=== PATIENT | female | born 1965 | race Two or more races ===

== ENCOUNTER 2024-03-10 10:00 | Outpatient (RCR) | payer MEDICAID, SELFPAY ==
--- NOTE | 2024-02-18 09:08 | PTNOTE_ITS ---
PT OP Initial Eval Patient Information Outpatient Physical Therapy Treatment Date: 02/18/24 Visit Reasons: RIGHT ELBOW PAIN Medical Diagnosis: M77.11 Treatment Dx #1: R elbow pain Treatment Dx #2: R facing end trimmer weakness Start of Care: 02/18/24 Date of Onset: 2 months ago Smoking Status Smoking Status: Never smoker Initial Assessment Subjective: Pt is 58 yr old austrian speaking female who reports onset of R elbow pain x2 months. Increased pain with lifting the UE to reach a tall cabinet or with brushing teeth. The hand feels weaker with gripping and opening jars. PMH: HTN, thyroidectomy Imaging: Xrays with provider Pt goal: to get rid of the pain Objective: Cruz facing end trimmer strength: R: 20 lbs, L: 45 lbs Wrist AROM:? Strength: ? Flexion: full? 4/5 with elbow pain ? Extension: full ? 4/5 with pain ? Special testing: ? Ashley test: positive ? Cozen's: positive ? TTP: moderate common extensor tendon at lateral elbow Assessment: Pt presentation consistent with referring Dx of R lateral epicondylitis. Pt ? has pain with resisted wrist extension, extensor tendon is TTP and pt has ? decreased facing end trimmer strength on R. Pt has positive testing for lateral ? epicondylitis. Eval followed by HEP with materials. Short Term and [employer] Goals 1. Ind with HEP ? 2. Improved facing end trimmer strength on R to 45 lbs ? 3. Pt will open jars with <=1/10 pain in R elbow ? 4. Improved wrist strength to 4+/5 without pain ? 5. Decreased TTP from mod to min of R lateral elbow Treatment Plan ? 1. Manual therapy ? 2. Therex ? 3. Modalities as indicated, moist heat, ice, estim Frequency and Duration: 1-2x a week for 12 visits, will need more auth to continue past 4 Certification Dates: 02/18/24 to 05/16/24 Procedure Charges OP PT Eval Mod Complex 30 minutes: Yes
--- NOTE | 2024-02-20 17:48 | PT.ODAYNRPT ---
PT Outpatient Daily Note OP Daily Note Outpatient Physical Therapy Treatment Date: 02/20/24 Visit Reasons: RIGHT ELBOW PAIN Subjective: Doing HEP with variable pain level Objective: See F/S for therex MT: STM R lateral epicondyle with Graston x7' Assessment: Moderate TTP of wrist extensors with MT Plan: Continue per POC Length of Time (minutes) of Treatment: 30 Minutes Procedure Charges Therapeutic Exercise 30 minutes: Yes
--- NOTE | 2024-02-24 15:04 | PT.ODAYNRPT ---
PT Outpatient Daily Note OP Daily Note Outpatient Physical Therapy Treatment Date: 02/24/24 Visit Reasons: RIGHT ELBOW PAIN Subjective: Pt reports she is still having pain on R elbow. Objective: Please see flow sheet for ther ex list. Assessment: Pt has poor activity tolerance due to increase in pain with activitiy. Plan: Continue with POC. Length of Time (minutes) of Treatment: 30 Minutes Procedure Charges Therapeutic Exercise 30 minutes: Yes
--- NOTE | 2024-03-02 14:40 | PT.ODAYNRPT ---
PT Outpatient Daily Note OP Daily Note Outpatient Physical Therapy Treatment Date: 03/02/24 Visit Reasons: RIGHT ELBOW PAIN Subjective: Pt reports no changes with elbow symptoms, continues to have pain. Objective: Please see flow sheet for ther ex list. Assessment: Delay with intervention progression due to pt pain response. Plan: Continue with POC. Length of Time (minutes) of Treatment: 30 Minutes Procedure Charges Therapeutic Exercise 30 minutes: Yes
--- NOTE | 2024-03-10 10:45 | PT.ODAYNRPT ---
PT Outpatient Daily Note OP Daily Note Outpatient Physical Therapy Treatment Date: 03/10/24 Visit Reasons: RIGHT ELBOW PAIN Subjective: Pt reports progress is slow, continues to have pain on her R elbow. Pt shared that there times where the pain is so bad it wakes her at night. Pt would like to try more PT sessions to see if it will help alleviate her symtpoms. Objective: Please see flow sheet for ther ex list. Assessment: Pt demonstrates poor activity tolerance due to pain response. Pt continues to c/o high pain and TTP on lateral elbow region. Plan: Requesting additional visit. Length of Time (minutes) of Treatment: 30 Minutes Procedure Charges Therapeutic Exercise 30 minutes: Yes
== END 2024-03-17 23:59 | disposition home or self-care (01) ==
LOC: CPTX 10:00
PROVIDERS: PCP Physician Assistant Medical; Referring Provider Physician Assistant Medical; Visit Provider Physician Assistant Medical
DX: M25.521 Pain in right elbow (principal); R53.1 Weakness; M77.11 Lateral epicondylitis, right elbow
CPT/HCPCS: 97110; 97162

== ENCOUNTER 2024-04-15 13:30 | Outpatient (RCR) | payer MEDICAID, SELFPAY ==
--- NOTE | 2024-04-10 14:58 | PT.ODAYNRPT ---
PT Outpatient Daily Note OP Daily Note Outpatient Physical Therapy Treatment Date: 04/10/24 Visit Reasons: Right elbow pain Subjective: Doing HEP with continued pain of lateral elbow Objective: See F/S for therex MT: STM R lateral epicondyle with Graston x7' Assessment: Moderate TTP of wrist extensors with MT Plan: Continue per POC Length of Time (minutes) of Treatment: 30 Minutes Procedure Charges Therapeutic Exercise 30 minutes: Yes
--- NOTE | 2024-04-13 13:44 | PT.ODAYNRPT ---
PT Outpatient Daily Note OP Daily Note Outpatient Physical Therapy Treatment Date: 04/13/24 Visit Reasons: Right elbow pain Subjective: Doing HEP with continued pain of lateral elbow Objective: See F/S for therex MT: STM R lateral epicondyle with Graston x7' Assessment: Moderate TTP of wrist extensors with MT Plan: Continue per POC Length of Time (minutes) of Treatment: 30 Minutes Procedure Charges Therapeutic Exercise 30 minutes: Yes
== END 2024-04-17 23:59 | disposition home or self-care (01) ==
LOC: CPTX 13:30
PROVIDERS: PCP Physician Assistant Medical; Referring Provider Physician Assistant Medical; Visit Provider Physician Assistant Medical
DX: M25.521 Pain in right elbow (principal); R53.1 Weakness; M77.11 Lateral epicondylitis, right elbow
CPT/HCPCS: 97110

== ENCOUNTER 2024-05-13 14:00 | Outpatient (RCR) | payer MEDICAID, SELFPAY ==
--- NOTE | 2024-04-21 14:14 | PT.ODAYNRPT ---
PT Outpatient Daily Note OP Daily Note Outpatient Physical Therapy Treatment Date: 04/21/24 Visit Reasons: RIGHT ELBOW PAIN Subjective: Doing HEP with continued pain of lateral elbow Objective: See F/S for therex MT: STM R lateral epicondyle with Graston x7' Assessment: Moderate TTP of wrist extensors with MT Plan: Continue per POC Length of Time (minutes) of Treatment: 30 Minutes Procedure Charges Therapeutic Exercise 30 minutes: Yes
--- NOTE | 2024-04-23 13:36 | PT.ODAYNRPT ---
PT Outpatient Daily Note OP Daily Note Outpatient Physical Therapy Treatment Date: 04/23/24 Visit Reasons: RIGHT ELBOW PAIN Subjective: Pt reports R elbow is doing a little better notices she can do more around her home and use her arm for ADL's with less pain. Objective: Please see flow sheet for ther ex list. Assessment: Interventoins completed with minimal pain. Pt instructed on stretches, pt able to replicate with good technique after verbal cues and demonstrations. Plan: Continue with POC. Length of Time (minutes) of Treatment: 30 Minutes Procedure Charges Therapeutic Exercise 30 minutes: Yes
--- NOTE | 2024-04-28 14:27 | PT.ODAYNRPT ---
PT Outpatient Daily Note OP Daily Note Outpatient Physical Therapy Treatment Date: 04/28/24 Visit Reasons: RIGHT ELBOW PAIN Subjective: Pt reports pain is less intense but still has pain with increase activity. Objective: Please see flow sheet for ther ex list. Assessment: Added pronation/supination AROM exercise with light weighted bar, pt completed with no complaints. Plan: Continue with POC. Length of Time (minutes) of Treatment: 30 Minutes Procedure Charges Therapeutic Exercise 30 minutes: Yes
--- NOTE | 2024-04-30 14:31 | PT.ODAYNRPT ---
PT Outpatient Daily Note OP Daily Note Outpatient Physical Therapy Treatment Date: 04/30/24 Visit Reasons: RIGHT ELBOW PAIN Subjective: Doing HEP with continued pain of lateral elbow Objective: See F/S for therex MT: STM R lateral epicondyle with Graston x7' Assessment: Moderate TTP of wrist extensors with MT consistent with tendinopathy and/or tear Plan: Continue per POC Length of Time (minutes) of Treatment: 30 Minutes Procedure Charges Therapeutic Exercise 30 minutes: Yes
--- NOTE | 2024-05-07 13:36 | PT.ODAYNRPT ---
PT Outpatient Daily Note OP Daily Note Outpatient Physical Therapy Treatment Date: 05/07/24 Visit Reasons: RIGHT ELBOW PAIN Subjective: Doing HEP with continued pain of lateral elbow Objective: See F/S for therex MT: STM R lateral epicondyle with Graston x7' Assessment: Moderate TTP of wrist extensors with MT consistent with tendinopathy and/or tear Plan: Continue per POC Length of Time (minutes) of Treatment: 30 Minutes Procedure Charges Therapeutic Exercise 30 minutes: Yes
--- NOTE | 2024-05-13 14:47 | PTNOTE_ITS ---
PT OP Progress/Discharge Note Date of Service: 05/13/24 Progress Note/DC Note Progress Note/Discharge Note: DC Note Patient Information Visit Reasons: RIGHT ELBOW PAIN Service Continue Service or Discharge: Discharge Discharge Date: 05/13/24 Status Subjective: Doing HEP with continued pain of lateral elbow, it feels about the same as before therapy. 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 Pt has not met goals and industrial electrical technician strength and tenderness of elbow is the same objectively. PT recommends further diagnostic imaging of R elbow such as MRI. Plan: Continue per POC Procedure Charges Therapeutic Exercise 30 minutes: Yes
== END 2024-05-15 23:59 | disposition home or self-care (01) ==
LOC: CPTX 14:00
PROVIDERS: PCP Physician Assistant Medical; Referring Provider Physician Assistant Medical; Visit Provider Physician Assistant Medical
DX: M25.521 Pain in right elbow (principal); R53.1 Weakness; I10 Essential (primary) hypertension; M77.11 Lateral epicondylitis, right elbow
CPT/HCPCS: 97110

== ENCOUNTER → 2024-08-06 | Outpatient (CLI) | payer MEDICAID, SELFPAY ==
--- NOTE | 2024-08-06 07:00 | XR_ITS ---
Examination: MRI right elbow, without contrast Date and time of exam: August 06, 2024 0705 hours INDICATIONS: Palpable lump in the posterior right elbow 1 year Technique: Multiple axial sagittal and coronal images of the right elbow have been obtained with the Siemens high-resolution 1.5 [place] MRI scanner. Images obtained include T2-weighted fat-suppressed sagittal sections, TR 3500, TE 46, T2 weighted coronal fat suppressed images, TR 3050, TE 84, T2-weighted transverse fat suppressed images, TR 3260, TE 63, proton density transverse images, TR 4720 TE 46, and T1 weighted coronal images, TR 560, TE 13. Findings: No soft tissue mass at the palpable marker site No occult fracture bone marrow contusion or marrow edema Medial lateral collateral ligaments appear intact Normal insertion long head of the biceps into the radial tuberosity No significant elbow effusion Triceps tendon intact IMPRESSION:: No soft tissue mass of the palpable marker site, recommend ultrasound soft tissue elbow follow-up
== END | disposition home or self-care (01) ==
PROVIDERS: PCP Physician Assistant; Referring Provider Physician Assistant; Visit Provider Physician Assistant
DX: M77.11 Lateral epicondylitis, right elbow (principal)
CPT/HCPCS: 73221